=== PATIENT | female | born 1960 | race Caucasian/White ===

== ENCOUNTER 2020-10-03 16:22 | Emergency (ER) | payer OTHER ==
[~2020-10-03] VITALS: Ht 160 cm; Wt 87.8 kg
[2020-10-03] MEDS ORDERED: ONDANSETRON 4MG/2ML VIAL As Ordered ONE (17:10)
[2020-10-03] MEDS ORDERED: ONDANSETRON 4MG/2ML VIAL IV ONE (17:10)
[2020-10-03] MEDS ORDERED: CITA10TA5 PO (17:21)
[2020-10-03] MEDS ORDERED: METO50TA7 PO (17:21)
[2020-10-03] MEDS ORDERED: ECOT81TA5 PO (17:21)
[2020-10-03] MEDS ORDERED: METF10004 PO (17:21)
[2020-10-03] MEDS ORDERED: CLOP75TA2 PO (17:21)
[2020-10-03] MEDS ORDERED: ATOR40TA75 PO (17:21)
[2020-10-03] MEDS ORDERED: CYCL5TAB PO (17:21)
[2020-10-03] MEDS ORDERED: LOSA25TA14 PO (17:21)
[2020-10-03 17:25] LABS: BASO # 0.1 10^3/uL (0.0-0.2); BASO % 1.2 % (0.0-1.0); EOS # 0.1 10^3/uL (0.0-0.5); EOS % 0.5 % (0.0-3.0); HEMATOCRIT 47.4 % (36.0-47.0); LYMPH # 1.2 10^3/uL (1.5-5.0); LYMPH % 10.7 % (24.0-44.0); MEAN CORPUSCULAR HEMOGLOBIN 32.3 pg (27.0-33.0); MEAN CORPUSCULAR HGB CONC 33.8 g/dl (32.0-36.5); MEAN CORPUSCULAR VOLUME 95.8 fl (80.0-96.0); MONO # 0.2 10^3/uL (0.0-0.8); MONO % 1.8 % (2.0-8.0); NEUTROPHILS # 9.5 10^3/uL (1.5-8.5); NEUTROPHILS % 85.4 % (36.0-66.0); PLATELET COUNT, AUTOMATED 302 10^3/uL (150-450); RED BLOOD COUNT 4.95 10^6/uL (4.00-5.40); WHITE BLOOD COUNT 11.1 10^3/uL (4.0-10.0)
[2020-10-03 17:31] LABS: ALBUMIN 4.4 GM/DL (3.2-5.2); ALT/SGPT 46 U/L (12-78); BILIRUBIN,DIRECT 0.1 MG/DL (0.0-0.2); BILIRUBIN,TOTAL 0.4 MG/DL (0.2-1.0); LIPASE 121 U/L (73-393); TOTAL PROTEIN 7.8 GM/DL (6.4-8.2)
[2020-10-03] MEDS ORDERED: HALOPERIDOL 5MG/ML VIAL (J1630 PER 1) IV ONE (17:35)
--- NOTE | 2020-10-03 17:46 | REP ---
INDICATION: nausea. COMPARISON: None. TECHNIQUE: SINGLE PORTABLE AP VIEW OF THE CHEST WAS PERFORMED. FINDINGS: THERE IS NO ACUTE INFILTRATE OR PULMONARY EDEMA. LUNGS ARE CLEAR. HEART IS NOT SIGNIFICANTLY ENLARGED. MEDIASTINAL SILHOUETTE IS UNREMARKABLE. There is calcification of the thoracic aorta. THE VISUALIZED OSSEOUS STRUCTURES ARE INTACT. IMPRESSION: NO ACUTE PULMONARY DISEASE. <Electronically signed by Jerome Carpenter > 10/03/20 [id number]
[2020-10-03 18:21] LABS: CPK CREATINE PHOSPHOKINASE 172 U/L (26-192); MB/CK RELATIVE INDEX 2.91 (< OR =4); TROPONIN I < 0.02 NG/ML (< 0.10)
[2020-10-03 20:00] VITALS: BP 174/72
[2020-10-03] MEDS ORDERED: ONDA4TAB6 PO (20:09)
--- NOTE | 2020-10-04 02:04 | ECGEPIP ---
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
== END 2020-10-03 20:31 | disposition home or self-care (01) ==
LOC: M ED 16:22
DX: K52.9 Noninfective gastroenteritis and colitis, unspecified (principal); E11.9 Type 2 diabetes mellitus without complications; I11.9 Hypertensive heart disease without heart failure; E78.2 Mixed hyperlipidemia; F17.200 Nicotine dependence, unspecified, uncomplicated
CPT/HCPCS: 71045; 80047; 80076; 82550; 82553; 83690; 85025; 93005; 93041; 96374; 96375; 99284; J1630; J2405

== ENCOUNTER 2021-05-16 12:09 | Inpatient (IN) | payer OTHER ==
[~2021-05-16] VITALS: Ht 157.5 cm; Wt 88.6 kg
[~2021-05-16 12:09] MED LIST: ATOR40TA75 PO; CITA10TA5 PO; CLOP75TA2 PO; CYCL5TAB PO; ECOT81TA5 PO; LOSA25TA14 PO; METF10004 PO; METO50TA7 PO; ONDA4TAB6 PO
[2021-05-16 13:06] LABS: BASO # 0.1 10^3/uL (0.0-0.2); BASO % 1.5 % (0.0-1.0); EOS # 0.2 10^3/uL (0.0-0.5); EOS % 2.4 % (0.0-3.0); HEMATOCRIT 44.8 % (36.0-47.0); HEMOGLOBIN 15.3 g/dl (12.0-15.5); LYMPH # 2.1 10^3/uL (1.5-5.0); LYMPH % 23.2 % (24.0-44.0); MEAN CORPUSCULAR HEMOGLOBIN 32.6 pg (27.0-33.0); MEAN CORPUSCULAR HGB CONC 34.2 g/dl (32.0-36.5); MEAN CORPUSCULAR VOLUME 95.5 fl (80.0-96.0); MONO # 0.7 10^3/uL (0.0-0.8); MONO % 7.7 % (2.0-8.0); NEUTROPHILS # 5.8 10^3/uL (1.5-8.5); PLATELET COUNT, AUTOMATED 255 10^3/uL (150-450); RED BLOOD COUNT 4.69 10^6/uL (4.00-5.40); WHITE BLOOD COUNT 8.9 10^3/uL (4.0-10.0)
--- NOTE | 2021-05-16 13:11 | REP ---
INDICATION: CVA - Nursing interventions must not delay CT. COMPARISON: None. TECHNIQUE: CT brain performed in the axial plane. Coronal reconstruction images are performed. FINDINGS: Mild atrophy. There is no midline shift or mass effect. Patchy lucencies are seen in the periventricular white matter bilaterally, right greater than left. These are nonspecific and may represent small vessel ischemic change, of indeterminate age. There is no acute intracranial hemorrhage or extra-axial fluid collection. There are vascular calcifications in the carotid siphons. Visualized paranasal sinuses and mastoid air cells appear clear. IMPRESSION: There is no midline shift or mass effect. Patchy lucencies are seen in the periventricular white matter bilaterally, right greater than left. These are nonspecific and may represent small vessel ischemic change, of indeterminate age. There is no acute intracranial hemorrhage or extra-axial fluid collection. <Electronically signed by Jerome Carpenter > 05/16/21 [id number]
--- NOTE | 2021-05-16 13:14 | REP ---
INDICATION: CVA. COMPARISON: 10/03/2020 TECHNIQUE: AP portable semi erect FINDINGS: The lungs are well inflated. There is no pleural effusion, lateral pleural thickening or apical scarring. No dense consolidation, atelectasis or mass. There are few cuffed bronchi in the perihilar regions that might reflect some reactive airway disease or bronchitis. No cardiomegaly, vascular redistribution or pulmonary edema. Calcified aortic arch without aneurysm. Airway intact. [place] symmetric. Some prominence of the pulmonary arteries noted that might reflect some pulmonary artery hypertension. Visualized bones intact. IMPRESSION: 1. Some perihilar peribronchial thickening that may reflect reactive airway disease or bronchitis but no dense consolidation, pleural effusion, cardiomegaly or edema. <Electronically signed by Wes Porras > 05/16/21 0021
[2021-05-16 13:15] LABS: INR 0.84
[2021-05-16] MEDS ORDERED: ASPIRIN 81 MG CHEW TABLET PO ONE (13:25)
[2021-05-16 13:43] LABS: CK-MB VALUE MASS 2.7 NG/ML (<3.6); CPK CREATINE PHOSPHOKINASE 237 U/L (26-192); MB/CK RELATIVE INDEX 1.14 (< OR =4); TROPONIN I < 0.02 NG/ML (< 0.10)
--- NOTE | 2021-05-16 14:53 | REP ---
INDICATION: fall injury. COMPARISON: None TECHNIQUE: Four views FINDINGS: There is no acute fracture, dislocation, subluxation, or joint effusion. IMPRESSION: No acute osseous abnormality <Electronically signed by Vincent Hunt > 05/16/21 [id number]
--- NOTE | 2021-05-16 14:55 | REP ---
INDICATION: fall injury COMPARISON: None TECHNIQUE: Four views each knee absent the sunrise views FINDINGS: The compartments are symmetric and well maintained bilaterally. There is no acute fracture or destructive osseous lesion bilaterally. Absent the sunrise view a subtle patellar fracture could be obscured. IMPRESSION: Negative limited exam bilateral as described above. A patellar fracture cannot be ruled out although none is seen on this limited exam. <Electronically signed by Vincent Hunt > 05/16/21 [id number]
[2021-05-16 15:15] LABS: RSV AMPLIFICATION NEGATIVE (NEGATIVE)
[2021-05-16] MEDS ORDERED: ALBU8.5H INH (15:59)
[2021-05-16] MEDS ORDERED: HOME MED LIST COMPLETE! XX SCH (16:00)
[2021-05-16 16:26] LABS: ALBUMIN 3.8 GM/DL (3.2-5.2); ALT/SGPT 52 U/L (12-78); BILIRUBIN,TOTAL 0.4 MG/DL (0.2-1.0); BLOOD UREA NITROGEN 15 MG/DL (7-18); CALCIUM LEVEL 9.4 MG/DL (8.5-10.1); CARBON DIOXIDE LEVEL 23 MEQ/L (21-32); CHLORIDE LEVEL 102 MEQ/L (98-107); CHOLESTEROL LEVEL 343 MG/DL (<200); CHOLESTEROL RISK RATIO 7.795 (<5); CREATININE FOR GFR 0.85 MG/DL (0.55-1.30); GLOMERULAR FILTRATION RATE > 60.0 (>51); GLUCOSE, FASTING 252 MG/DL (70-100); HDL CHOLESTEROL 44 MG/DL (>40); LDL CHOLESTEROL 219 MG/DL (<100); NON-HDL-C 299 MG/DL; POTASSIUM SERUM 4.3 MEQ/L (3.5-5.1); SODIUM LEVEL 135 MEQ/L (136-145); TOTAL PROTEIN 7.5 GM/DL (6.4-8.2); TRIGLYCERIDES LEVEL 398 MG/DL (<150)
[2021-05-16] MEDS ORDERED: NICOTINE 21MG/24HR 1 EA TRANSDERMAL TD ONE (16:35)
[2021-05-16] MEDS ORDERED: CYCLOBENZAPRINE 5MG TABLET PO PRN (16:55)
[2021-05-16] MEDS ORDERED: ALBUTEROL 90 MCG/ACT 8GM HFA INHALER INH PRN (16:55)
[2021-05-16] MEDS ORDERED: GLUCOSE 4GM CHEW TABLET PO PRN (17:05)
[2021-05-16] MEDS ORDERED: DEXTROSE 50% 50 ML SYRINGE IV PRN (17:05)
[2021-05-16] MEDS ORDERED: GLUCAGON INJ 1MG VIAL SC PRN (17:05)
--- NOTE | 2021-05-16 17:07 | HPEPDOC ---
[facility] Medical History & Physical Date of Admission May 16, 2021 Date of Service: May 16, 2021 Attending Physician: Constance Lucas MD History and Physical CHIEF COMPLAINT: Left-sided weakness HISTORY OF PRESENT ILLNESS: The patient is a 60-year-old female with past medical history of coronary artery disease status post stenting, diabetes mellitus, depression, hypertension, COPD, tobacco use who presented to [facility] emergency room with the chief complaint of left-sided weakness beginning 05/15/2020 1 in the AM. According to the patient her symptoms began at 6:30 in the morning on 05/15/21 with her left leg dragging on the ground. She stated that her symptoms began suddenly and she had to physically lift her leg to get it to move. Throughout the day she noticed left upper extremity weakness along with left hand numbness and tingling. She denied slurred speech, facial droop, difficulty swallowing, right-sided weakness, loss of bowel or bladder, chest pain, shortness of breath, nausea, vo miting, diarrhea, recent illnesses. Overnight she had a fall where she landed on both knees and her hand. Today the symptoms persisted and she decided to call 911. In the emergency room her vital signs were stable. CT of the head showed nonspecific findings but no intracranial hemorrhage. Chest x-ray and bilateral knee x-ray, right elbow x-ray negative. On exam the patient had 4/5 strength in the left lower and left upper extremity. Sensation was intact to dull and sharp in all extremities. Cranial nerves II-12 are intact. Labs were unremarkable. Upon further questioning, The patient is supposed to be on Plavix and aspirin but admits to not taking any of her medications since early spring. Discussed the case with neurology. MRI and MRA of the brain and neck were ordered. The patient was admitted for left-sided weakness rule out CVA. REVIEW OF SYSTEMS: CONSTITUTIONAL: Denies lack of energy, unexplained weight gain or weight loss, loss of appetite, fever, night sweats EYES: Denies eye drainage, eye pain, visual changes, dry/irritated eye EARS, NOSE, MOUTH, THROAT: Denies difficulty hearing, ringing in ears, mouth sores, loose teeth, sore throat, facial numbness or pain NECK: Denies swollen glands CARDIOVASCULAR: Denies irregular heartbeat, racing heart, chest pains, swelling of feet or legs, pain in legs with walking RESPIRATORY: Denies shortness of breath, night sweats, wheezing, sputum production, oxygen at home, coughing up blood, cough lasting > 1 month GASTROINTESTINAL: Denies abdominal pain, constipation, bloody stool, diarrhea, heartburn, nausea, vomiting GENITOURINARY: Denies painful urination, bloody urine, frequent urination, urgency, leaking urine, impotence MUSCULOSKELETAL: Denies joint pain, muscle pain, leg swelling INTEGUMENTARY: Denies rash, itching, new skin lesion, change in existing skin lesion, hair loss or increase, breast changes. NEUROLOGICAL: Denies headaches, dizziness PSYCHIATRIC: Denies depression, anxiety, recurrent bad thoughts, mood swings, hallucinations PAST MEDICAL HISTORY: coronary artery disease status post stenting, diabetes mellitus, depression, hypertension, COPD, tobacco use PAST SURGICAL HISTORY: Cardiac stent placement cholecystectomy colonoscopy FAMILY HISTORY: Motherdiabetes mellitus. at unknown age SOCIAL HISTORY: One pack per day for 46 years. Drinks alcohol intermittently. Admits to smoking marijuana. Lives with her daughter. Does not use a cane or walker. Was previously independent. Full code. ALLERGIES: Please see below. HOME MEDICATIONS: Please see below. PHYSICAL EXAMINATION: CONSTITUTIONAL: No acute distress, resting comfortably, AAO x 3 EYES: PERRLA, EOM intact HENT, MOUTH: Normocephalic, atraumatic, moist mucous membranes NECK: SUPPLE, no JVD, no lymphadenopathy, no carotid bruit CV: Regular rate and rhythm, S1S2 normal, no murmurs/rubs/gallops RESPIRATORY: Clear to auscultation bilaterally, no rales/rhonchi/wheezes GI: BS positive in 4 quadrants, soft, nontender, nondistended, no rebound or guarding, no organomegaly : Deferred MUSCULOSKELETAL: Normal ROM. No cyanosis, clubbing, swelling, joint deformity, extremity edema INTEGUMENTARY: Intact, no rashes, no lesions, no erythema NEUROLOGIC: 4/5 strength in the left lower and left upper extremity. Sensation was intact to dull and sharp in all extremities. Cranial nerves II-12 are intact. Reflexes present in upper and lower extremity PSYCHIATRIC: Mood and affect are normal LABORATORY DATA: Please see below IMAGING: CT head: There is no midline shift or mass effect. Patchy lucencies are seen in the periventricular white matter bilaterally, right greater than left. These are nonspecific and may represent small vessel ischemic change, of indeterminate age. There is no acute intracranial hemorrhage or extra-axial fluid collection. CXR: 1. Some perihilar peribronchial thickening that may reflect reactive airway disease or bronchitis but no dense consolidation, pleural effusion, cardiomegaly or edema. B/l knee XR: Negative limited exam bilateral as described above. A patellar fracture cannot be ruled out although none is seen on this limited exam. R elbow XR: No acute osseous abnormality ASSESSMENT: 60-year-old female with past medical history of coronary artery disease status post stenting, diabetes mellitus, depression, hypertension, COPD, tobacco use admitted for left-sided weakness rule out CVA. PLAN: Left-sided weakness rule out CVA -Multiple risk factors: Smoker, coronary artery disease, noncompliance with antiplatelet medication, hyperlipidemia -CT head negative -Neurological findings seen above -Follow-up neurological checks, telemetry, echocardiogram, PT/OT -No speech or swallowing deficits seen on exam. If some she developed order swallowing evaluation -Started on high-dose atorvastatin, continue aspirin and Plavix -Discussed the case with neurology on-call. Will see tomorrow on consult. -Follow-up MRI of the brain, MRA of the head and neck Fall secondary to left-sided weakness -X-rays above negative -Assistance with activity out of bed, fall precautions -PT/OT Hypertension -Stable with systolic 130's -Holding home metoprolol and losartan for now Hyperlipidemia -Atorvastatin Tobacco use -Nicotine patch COPD -Currently on room air, not in exacerbation -Albuterol when necessary Leg cramping bilaterally -On statin medication -Follow up CPK and electrolytes Depression -No homicidal or suicidal ideation -Continue home citalopram DVT prophylaxis -Lovenox DISPOSITION: Admitted as acute inpatient. Neurology consulted and will see in the a.m. PT/OT. Vital Signs Vital Signs Date Time Temp Pulse Resp B/P (MAP) Pulse Ox O2 Delivery O2 Flow Rate FiO2 05/16/21 12:12 97.0 104 18 136/92 (107) 93 Room Air Laboratory Data Labs 24H Laboratory Tests 2 05/16/21 12:49: Immature Granulocyte % (Auto) 0.2, Neutrophils (%) (Auto) 65.0, Lymphocytes (%) (Auto) 23.2L, Monocytes (%) (Auto) 7.7, Eosinophils (%) (Auto) 2.4, Basophils (%) (Auto) 1.5H, Neutrophils # (Auto) 5.8, Lymphocytes # (Auto) 2.1, Monocytes # (Auto) 0.7, Eosinophils # (Auto) 0.2, Basophils # (Auto) 0.1, Nucleated Red Blood Cells % (auto) 0.0, Prothrombin Time 12.0, Prothromb Time International Ratio 0.84, Activated Partial Thromboplast Time 27.0, Anion Gap 10, Glomerular Filtration Rate > 60.0, Calcium Level 9.4, Total Bilirubin 0.4, Aspartate Amino Transf (AST/SGOT) 30, Alanine Aminotransferase (ALT/SGPT) 52, Alkaline Phosphatase 94, Total Creatine Kinase 237H, Creatine Kinase MB 2.7, Creatine Kinase MB Relative Index 1.14, Troponin I < 0.02, Total Protein 7.5, Albumin 3.8, Albumin/Globulin Ratio 1.0L, Triglycerides Level 398H, Total Cholesterol 343H, LDL Cholesterol 219H, Non-HDL Cholesterol (LDL + VLDL) 299, Total HDL Cholesterol 44, Cholesterol/HDL Ratio 7.795H, Thyroid Stimulating Hormone (TSH) 1.650 05/16/21 12:50: POC Glucose (Misc Panel) 262H, POC Sodium (Misc Panel) 135L, POC Potassium (Misc Panel) 4.4, POC Chloride (Misc Panel) 101, POC Total CO2 (Misc Panel) 25.0, POC Blood Urea Nitrogen (Misc Panel 20, POC Ionized Calcium (Misc Panel) 4.7, POC Creatinine (Misc Panel) 0.5L, POC Hematocrit (Misc Panel) 47.0 05/16/21 13:04: Coronavirus (COVID-19)(PCR) NEGATIVE, Influenza Type A (RT-PCR) NEGATIVE, Influenza Type B (RT-PCR) NEGATIVE, Respiratory Syncytial Virus (PCR) NEGATIVE CBC/BMP Laboratory Tests 05/16/21 12:49 Home Medications Scheduled Atorvastatin Calcium (Atorvastatin Calcium) 40 Mg Tablet, 40 MG PO DAILY Citalopram Hydrobromide (Citalopram HBr) 10 Mg Tablet, 10 MG PO DAILY Clopidogrel Bisulfate (Clopidogrel) 75 Mg Tablet, 75 MG PO DAILY Losartan Potassium (Losartan Potassium) 25 Mg Tablet, 25 MG PO DAILY Metformin HCl (Metformin HCl) 1,000 Mg Tablet, 1,000 MG PO DAILY Metoprolol Tartrate (Metoprolol Tartrate) 50 Mg Tablet, 50 MG PO BID Scheduled PRN Albuterol Sulfate (Albuterol Sulfate Hfa) 8.5 Gm Hfa.aer.ad, 1 PUFF INH Q4H PRN for SOB/WHEEZING Cyclobenzaprine HCl (Cyclobenzaprine HCl) 5 Mg Tablet, 5 MG PO QHS PRN for MUSCLE SPASMS Allergies Coded Allergies: No Known Allergies (Unverified , 10/03/20) A-FIB/CHADSVASC A-FIB History Current/History of A-Fib/PAF?: No Current PO Anticoag Therapy: No Age/Risk Factor Scoring CHADSVASC: CHADSVASC Response (Comments) Value Age Risk Factor Age < 65 years old 0 Gender Risk Factor Female 1 Hx of CHF No 0 Hx of HTN Yes 1 Hx of Stroke/TIA/or VTE Yes 2 Hx of Diabetes Yes 1 Hx of Vascular Disease Yes 1 Total 6 Treatment Treatment ordered: Other Other anticoagulant ordered: Constance Israel MD May 16, 2021 17:07
[2021-05-16 18:06] LABS: MAGNESIUM LEVEL 1.8 MG/DL (1.8-2.4); PHOSPHORUS LEVEL 3.6 MG/DL (2.5-4.9)
[2021-05-16] MEDS: HumaLOG INSULIN (NovoLOG) PER UNIT SC SCH ×2 (18:52→21:44)
[2021-05-16] MEDS ORDERED: LORazepam 2 MG/ML VIAL IV STA (19:17)
--- NOTE | 2021-05-16 20:52 | ECGEPIP ---
[facility] - ED Test Date: 2021-05-16 Pat Name: ADRIA KING Department: Room: - Gender: Female Elderly Sitter: JUAN ANTONIO : 1960 Requested By: KAREN COUGHLIN Order Number: [id number] Reading MD: Jessica Garcia Measurements Intervals [place] Rate: 77 P: 26 WV: 134 QRS: 66 QRSD: 82 T: 42 QT: 386 QTc: 436 Interpretive Statements Normal sinus rhythm Low voltage QRS prwp NSTTW abnormalities increased rate 10/03/20 Electronically Signed on 05-16-2021 20:51:57 EDT by Jessica Garcia
[2021-05-16] MEDS ORDERED: METOPROLOL TART 50 MG TAB PO SCH (21:00)
--- NOTE | 2021-05-16 22:18 | REPVR ---
PROCEDURE INFORMATION: Exam: MR Head Without Contrast Exam date and time: 05/16/2021 7:57 PM Age: 60 years old Clinical indication: Weakness, extremity; Left; Additional info: Left side weakness, R/O CVA TECHNIQUE: Imaging protocol: MR of the head without contrast. COMPARISON: CT Head without contrast 05/16/2021 12:42 PM FINDINGS: Limitations: Motion artifact limits this study. Brain: Foci of restricted diffusion are identified in the region of the posterior limb of the right internal capsule, consistent with acute lacunar infarcts. These findings are hyperintense on FLAIR. A few tiny foci of increased diffusion signal intensity are noted within the left basal ganglia, with heterogeneous signal intensity on the ADC trace sequence. Acute or subacute infarcts are considered. Due to the distribution of findings, embolic disease is suggested. Multiple foci of FLAIR hyperintensity are identified within the cerebral white matter bilaterally, as well as the michael. There is no mass effect or restricted diffusion associated with these foci. This likely represents chronic small vessel ischemic disease. An area of FLAIR hyperintense edema or gliosis identified within the right frontal white matter measuring 2.5 x 2.5 cm. Chronic small vessel ischemic disease is considered. Additional differential considerations include demyelination and post-traumatic change as well as additional infectious, inflammatory and autoimmune etiologies. A few additional foci of FLAIR hyperintensity are seen within the left basal ganglia, likely representing chronic ischemic change. No magnetic susceptibility intracerebral blood products/hemosiderin visualized. Cerebral ventricles: There is mild prominence of the ventricles and sulci, compatible with atrophy. Pituitary gland and sella: Empty sella. Bones/joints: Unremarkable, as visualized. Paranasal sinuses: Normal as visualized. No acute sinusitis. Mastoid air cells: Minimal mucosal thickening/effusions within right mastoid air cells. Orbital cavity: Bilateral proptosis. Soft tissues: Unremarkable, as visualized. IMPRESSION: 1. Foci of restricted diffusion are identified in the region of the posterior limb of the right internal capsule, consistent with acute lacunar infarcts. 2. A few tiny foci of increased diffusion signal intensity are noted within the left basal ganglia. Acute or subacute infarcts are considered. Due to the distribution of findings, embolic disease is suggested. 3. Moderate white matter disease, likely representing chronic small vessel ischemic disease. 4. An area of edema or gliosis identified within the right frontal white matter. Chronic small vessel ischemic disease is considered. Additional differential considerations listed above. A follow-up MRI with contrast is recommended to exclude an underlying enhancing lesion. 5. Mild atrophy. 6. Empty sella. 7. Additional findings described above. Electronically signed by: Quinn Whittaker On 05/16/2021 22:18:12 PM
--- NOTE | 2021-05-16 22:30 | REPVR ---
PROCEDURE INFORMATION: Exam: MRA Head Without Contrast; Arteriography Exam date and time: 05/16/2021 7:57 PM Age: 60 years old Clinical indication: Weakness; Additional info: Left side weakness, R/O CVA TECHNIQUE: Imaging protocol: Magnetic resonance angiography head without contrast. Exam focused on the arteries. COMPARISON: CT Head without contrast 05/16/2021 12:42 PM FINDINGS: ANTERIOR CIRCULATION: Right internal carotid artery: Intracranial segment is patent with no significant stenosis. No aneurysm. Right middle cerebral artery: No occlusion or significant stenosis. No aneurysm. 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 The A2 and A3 segments of the right anterior cerebral artery is dominant. No occlusion. Left internal carotid artery: Intracranial segment is patent with no significant stenosis. No aneurysm. Left middle cerebral artery: No occlusion or significant stenosis. No aneurysm. 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 No occlusion. No aneurysm. POSTERIOR CIRCULATION: Right vertebral artery: Artifact limits evaluation of the distal V3/proximal V4 segments of the right vertebral artery, without occlusion. No significant stenosis or occlusion of the remaining V4 segment. Left vertebral artery: Artifact limits evaluation of the distal V3/proximal V4 segments of the left vertebral artery, without occlusion. No significant stenosis or occlusion of the remaining V4 segment. Basilar artery: No occlusion or significant stenosis. No aneurysm. Right posterior cerebral artery: Persistence of the origin of the right posterior cerebral artery, without significant stenosis or occlusion. No aneurysm. Left posterior cerebral artery: No occlusion or significant stenosis. No aneurysm. IMPRESSION: 1. No large vessel arterial occlusion on this MRA head. 2. Artifact limits evaluation of the distal V3/proximal V4 segments of the bilateral vertebral arteries, without occlusion. The remaining V4 segments are patent. 3. Additional findings described above. Electronically signed by: Quinn Whittaker On 05/16/2021 22:29:52 PM
--- NOTE | 2021-05-16 22:40 | REPVR ---
PROCEDURE INFORMATION: Exam: MRA Neck Without Contrast Exam date and time: 05/16/2021 8:18 PM Age: 60 years old Clinical indication: Weakness; Additional info: Left side weakness, R/O CVA TECHNIQUE: Imaging protocol: Magnetic resonance angiography of the neck without contrast. COMPARISON: MRA BRAIN W/O CONTRAST 05/16/2021 7:29 PM FINDINGS: Right common carotid artery: No significant stenosis or occlusion of the distal right common carotid artery. Artifact limits evaluation of the remaining right common carotid artery, without occlusion. Right internal carotid artery: No stenosis of the proximal right internal carotid artery using NASCET criteria. Artifact limits evaluation of the remaining extracranial right internal carotid artery, without occlusion. Right external carotid artery: No significant stenosis. No occlusion. Right vertebral artery: Suboptimal evaluation of the distal V3 segment of the right vertebral artery. No occlusion when correlated with the MRA head from the same day. Artifact limits evaluation of the V2 segment, without occlusion. Suboptimal evaluation of the V1 segment of the right vertebral artery. Flow-limiting pathology cannot be excluded. Left common carotid artery: No significant stenosis or occlusion of the distal left common carotid artery. The origin of the left common carotid artery is out of the field of view of this study. The remaining left common carotid artery is limited by artifact, without occlusion. Left internal carotid artery: No stenosis of the proximal left internal carotid artery using NASCET criteria. Artifact limits evaluation of the remaining extracranial left internal carotid artery, without occlusion. Left external carotid artery: No significant stenosis. No occlusion. Left vertebral artery: Artifact significant limits evaluation of the extracranial left vertebral artery, without definitive occlusion. IMPRESSION: 1. No stenosis of the proximal internal carotid arteries bilaterally using NASCET criteria. 2. Suboptimal evaluation of the V1 segment of the right vertebral artery. Flow-limiting pathology cannot be excluded. 3. Additional findings described above. 4. Due to the limitations of this study, correlation with CTA or postcontrast MRA is recommended, as clinically indicated. REFERENCES: NASCET CRITERIA. The degree of internal carotid artery stenosis is based on NASCET criteria. Normal is no stenosis. Mild is less than 50% stenosis. Moderate is 50-69% stenosis. Severe is 70% to 99% stenosis. Total occlusion is no detectable patent lumen. Electronically signed by: Quinn Whittaker On 05/16/2021 22:40:01 PM
[2021-05-17 05:37] LABS: HEMATOCRIT 45.1 % (36.0-47.0); HEMOGLOBIN 15.2 g/dl (12.0-15.5); MEAN CORPUSCULAR HGB CONC 33.7 g/dl (32.0-36.5); PLATELET COUNT, AUTOMATED 225 10^3/uL (150-450); WHITE BLOOD COUNT 7.6 10^3/uL (4.0-10.0)
[2021-05-17 06:20] LABS: ALBUMIN 3.3 GM/DL (3.2-5.2); ALT/SGPT 47 U/L (12-78); BILIRUBIN,TOTAL 0.3 MG/DL (0.2-1.0); BLOOD UREA NITROGEN 17 MG/DL (7-18); CALCIUM LEVEL 9.4 MG/DL (8.5-10.1); CARBON DIOXIDE LEVEL 26 MEQ/L (21-32); CHLORIDE LEVEL 106 MEQ/L (98-107); CREATININE FOR GFR 0.75 MG/DL (0.55-1.30); GLOMERULAR FILTRATION RATE > 60.0 (>51); GLUCOSE, FASTING 263 MG/DL (70-100); SODIUM LEVEL 139 MEQ/L (136-145); TOTAL PROTEIN 6.8 GM/DL (6.4-8.2)
[2021-05-17 07:49] LABS: NT-PRO BNP 48 PG/ML (<125)
[2021-05-17] MEDS ORDERED: metFORMIN (GLUCOPHAGE) 1000 MG TABLET PO SCH (09:00)
[2021-05-17] MEDS ORDERED: LOSARTAN 25 MG TAB PO SCH (09:00)
[2021-05-17] MEDS: ASPIRIN 81MG ENTERIC TABLET PO SCH (09:05)
[2021-05-17] MEDS: HumaLOG INSULIN (NovoLOG) PER UNIT SC SCH ×4 (09:05→21:00)
[2021-05-17] MEDS: CitaloPRAM (CeleXA) 10 MG TABLET PO SCH (09:05)
[2021-05-17] MEDS: CLOPIDOGREL 75 MG TAB PO SCH (09:05)
[2021-05-17] MEDS: ATORVASTATIN 20 MG TAB PO SCH (09:06)
--- NOTE | 2021-05-17 11:12 | IPNPDOC ---
Date Seen The patient was seen on 05/17/21. Progress Note SUBJECTIVE: No change in neurological status overnight. Denies chest pain, shortness of breath, fevers, chills, nausea, vomiting, lightheadedness or dizziness. OBJECTIVE: PHYSICAL EXAMINATION: CONSTITUTIONAL: No acute distress, resting comfortably, AAO x 3 EYES: PERRLA, EOM intact HENT, MOUTH: Normocephalic, atraumatic, moist mucous membranes NECK: SUPPLE, no JVD, no lymphadenopathy, no carotid bruit CV: Regular rate and rhythm, S1S2 normal, no murmurs/rubs/gallops RESPIRATORY: Clear to auscultation bilaterally, no rales/rhonchi/wheezes GI: BS positive in 4 quadrants, soft, nontender, nondistended, no rebound or guarding, no organomegaly : Deferred MUSCULOSKELETAL: Normal ROM. No cyanosis, clubbing, swelling, joint deformity, extremity edema INTEGUMENTARY: Intact, no rashes, no lesions, no erythema NEUROLOGIC: 4/5 strength in the left lower and left upper extremity. Sensation was intact to dull and sharp in all extremities. Cranial nerves II-12 are intact. Reflexes present in upper and lower extremity PSYCHIATRIC: Mood and affect are normal LABORATORY DATA: Please see below IMAGING: MRA neck (was not able to do with contrast due to staffing): 1. No stenosis of the proximal internal carotid arteries bilaterally using NASCET criteria. 2. Suboptimal evaluation of the V1 segment of the right vertebral artery. Flow-limiting pathology cannot be excluded. 3. Additional findings described above. 4. Due to the limitations of this study, correlation with CTA or postcontrast MRA is recommended, as clinically indicated. MRA brain: 1. No large vessel arterial occlusion on this MRA head. 2. Artifact limits evaluation of the distal V3/proximal V4 segments of the bilateral vertebral arteries, without occlusion. The remaining V4 segments are patent. 3. Additional findings described above. MRI brain: 1. Foci of restricted diffusion are identified in the region of the posterior limb of the right internal capsule, consistent with acute lacunar infarcts. 2. A few tiny foci of increased diffusion signal intensity are noted within the left basal ganglia. Acute or subacute infarcts are considered. Due to the distribution of findings, embolic disease is suggested. 3. Moderate white matter disease, likely representing chronic small vessel ischemic disease. 4. An area of edema or gliosis identified within the right frontal white matter. Chronic small vessel ischemic disease is considered. Additional differential considerations listed above. A follow-up MRI with contrast is recommended to exclude an underlying enhancing lesion. 5. Mild atrophy. CT head: There is no midline shift or mass effect. Patchy lucencies are seen in the periventricular white matter bilaterally, right greater than left. These are nonspecific and may represent small vessel ischemic change, of indeterminate age. There is no acute intracranial hemorrhage or extra-axial fluid collection. CXR: 1. Some perihilar peribronchial thickening that may reflect reactive airway disease or bronchitis but no dense consolidation, pleural effusion, cardiomegaly or edema. B/l knee XR: Negative limited exam bilateral as described above. A patellar fracture cannot be ruled out although none is seen on this limited exam. R elbow XR: No acute osseous abnormality ASSESSMENT: 60-year-old female with past medical history of coronary artery disease status post stenting, diabetes mellitus, depression, hypertension, COPD, tobacco use admitted for left-sided weakness rule out CVA. PLAN: Left-sided weakness likely 2/2 to acute right lacunar infarcts, left basal g [place]- r/o embolic disease -MRI brain above, also cannot r/o acute left basal ganglia acute or subacute infarcts are considered. Due to the distribution of findings, embolic disease is suggested? -Other imaging above -Multiple risk factors: Smoker, coronary artery disease, noncompliance with anti platelet medication, hyperlipidemia -Neurological findings stable overnight, neg neuro checks -Lipid panel shows high TG and cholesterol -Continue to follow up neurological checks, telemetry, PT/OT -Echocardiogram initially done without bubble study, will reorder -No speech or swallowing deficits seen on exam. If some she developed order swallowing evaluation -C/w high-dose atorvastatin, aspirin and Plavix -Discussed the case with neurology on-call. Will see today on consult Fall secondary to left-sided weakness -X-rays above negative -Assistance with activity out of bed, fall precautions -PT/OT Hypertension -Stable with systolic 130's -Holding home metoprolol and losartan for now Hyperlipidemia -High TG and cholesterol -Atorvastatin Tobacco use -Nicotine patch COPD -Currently on room air, not in exacerbation -Albuterol when necessary Leg cramping bilaterally, hx of restless leg syndrome and electrolyte abnormalities -On statin medication but CPK minimally elevated -Replace lytes PRN Depression -No homicidal or suicidal ideation -Continue home citalopram DVT prophylaxis -Lovenox DISPOSITION: Admitted as acute inpatient. Neurology consulted will see today. PT/OT. VS, I&O, 24H, Tan Vital Signs/I&O Vital Signs Date Time Temp Pulse Resp B/P (MAP) Pulse Ox O2 Delivery O2 Flow Rate FiO2 05/17/21 08:15 97.7 82 22 149/66 (93) 95 Nasal Cannula 2.0 Laboratory Data 24H LABS Laboratory Tests 2 05/16/21 12:49: Immature Granulocyte % (Auto) 0.2, Neutrophils (%) (Auto) 65.0, Lymphocytes (%) (Auto) 23.2L, Monocytes (%) (Auto) 7.7, Eosinophils (%) (Auto) 2.4, Basophils (%) (Auto) 1.5H, Neutrophils # (Auto) 5.8, Lymphocytes # (Auto) 2.1, Monocytes # (Auto) 0.7, Eosinophils # (Auto) 0.2, Basophils # (Auto) 0.1, Nucleated Red Blood Cells % (auto) 0.0, Prothrombin Time 12.0, Prothromb Time International Ratio 0.84, Activated Partial Thromboplast Time 27.0, Anion Gap 10, Glomerular Filtration Rate > 60.0, Calcium Level 9.4, Total Bilirubin 0.4, Aspartate Amino Transf (AST/SGOT) 30, Alanine Aminotransferase (ALT/SGPT) 52, Alkaline Phosphatase 94, Total Creatine Kinase 237H, Creatine Kinase MB 2.7, Creatine Kinase MB Relative Index 1.14, Troponin I < 0.02, Total Protein 7.5, Albumin 3.8, Albumin/Globulin Ratio 1.0L, Triglycerides Level 398H, Total Cholesterol 343H, LDL Cholesterol 219H, Non-HDL Cholesterol (LDL + VLDL) 299, Total HDL Cholesterol 44, Cholesterol/HDL Ratio 7.795H, Thyroid Stimulating Hormone (TSH) 1.650 05/16/21 12:50: POC Glucose (Misc Panel) 262H, POC Sodium (Misc Panel) 135L, POC Potassium (Misc Panel) 4.4, POC Chloride (Misc Panel) 101, POC Total CO2 (Misc Panel) 25.0, POC Blood Urea Nitrogen (Misc Panel 20, POC Ionized Calcium (Misc Panel) 4.7, POC Creatinine (Misc Panel) 0.5L, POC Hematocrit (Misc Panel) 47.0 05/16/21 13:04: Coronavirus (COVID-19)(PCR) NEGATIVE, Influenza Type A (RT-PCR) NEGATIVE, Influenza Type B (RT-PCR) NEGATIVE, Respiratory Syncytial Virus (PCR) NEGATIVE 05/16/21 17:24: Total Creatine Kinase 214H, Phosphorus Level 3.6, Magnesium Level 1.8 05/16/21 21:41: Bedside Glucose (Misc Panel) 308H 05/17/21 05:23: Nucleated Red Blood Cells % (auto) 0.0, Anion Gap 7L, Glomerular Filtration Rate > 60.0, Calcium Level 9.4, Total Bilirubin 0.3, Aspartate Amino Transf (AST/SGOT) 20, Alanine Aminotransferase (ALT/SGPT) 47, Alkaline Phosphatase 93, XC-Wbq-[id number]-Type Natriuretic Peptide 48, Total Protein 6.8, Albumin 3.3, Albumin/Globulin Ratio 0.9L CBC/BMP Laboratory Tests 05/16/21 12:49 05/17/21 05:23 Constance Lucas MD May 17, 2021 11:12
[2021-05-17] MEDS: ACETAMINOPHEN TAB 650MG DOSE (2X325MG) PO PRN (12:30)
[2021-05-17] MEDS ORDERED: LEVEMIR (INSULIN DETEMIR) 1 UNITS/0.01ML SC SCH (12:45)
[2021-05-17] MEDS ORDERED: PROHANCE 279.3MG/ML 5ML VIAL As Ordered ONE (14:09)
[2021-05-17] MEDS ORDERED: PROHANCE 279.3MG/ML 15ML VIAL As Ordered ONE (14:09)
[2021-05-17] MEDS ORDERED: LEVEMIR (INSULIN DETEMIR) 1 UNITS/0.01ML SC ONE (14:15)
--- NOTE | 2021-05-17 15:13 | REPVR ---
PROCEDURE INFORMATION: Exam: MR Head With Contrast Exam date and time: 05/17/2021 2:25 PM Age: 60 years old Clinical indication: Other: Abnormal mri without, R/O mass, recent CVA TECHNIQUE: Imaging protocol: MR of the head with intravenous contrast. Contrast material: PROHANCE; Contrast volume: 17 ml; Contrast route: INTRAVENOUS (IV); COMPARISON: MRI-Brain without Contrast 05/16/2021 7:29 PM FINDINGS: Brain: Examination reveals no evidence for abnormal contrast enhancement in the focal area of vasogenic edema/gliosis noted in the right frontal white matter on the previous study. No significant mass effect is noted. This excludes the possibility of metastasis or infectious process. A low-grade glioma cannot be entirely excluded and a follow-up MRI in 3-6 months or MRI spectroscopy may be considered for further evaluation. No abnormal contrast enhancement is seen in area of acute infarctions in the posterior limb of the right internal capsule noted on the previous study. No acute hemorrhage or midline shift is seen. No abnormal contrast enhancement is seen. Stable changes of moderate chronic microvascular ischemic disease and multiple foci of chronic ischemia in bilateral cerebral white matter. Few of the white matter lesions are perpendicular to the long axis of the lateral ventricles and multiple sclerosis should also be considered. Cerebral ventricles: The ventricular system is not dilated and is appropriate for the patient's age. Bones/joints: Unremarkable. Paranasal sinuses: Normal as visualized. No acute sinusitis. Mastoid air cells: Normal as visualized. No mastoid effusion. Orbital cavity: Unremarkable. Other vasculature: There are prominent lenticulostriate small vessels bilaterally and vasculitis such as moyamoya disease should also be considered. IMPRESSION: 1. Examination reveals no evidence for abnormal contrast enhancement in the focal area of vasogenic edema/gliosis noted in the right frontal white matter on the previous study. No significant mass effect is noted. This excludes the possibility of metastasis or infectious process. A low-grade glioma cannot be entirely excluded and a follow-up MRI in 3-6 months or MRI spectroscopy may be considered for further evaluation. 2. No abnormal contrast enhancement is seen in area of acute infarctions in the posterior limb of the right internal capsule noted on the previous study. 3. Stable changes of moderate chronic microvascular ischemic disease and multiple foci of chronic ischemia in bilateral cerebral white matter. Few of the white matter lesions are perpendicular to the long axis of the lateral ventricles and multiple sclerosis should also be considered. 4. There are prominent lenticulostriate small vessels bilaterally and vasculitis such as moyamoya disease should also be considered. Electronically signed by: Silvestre Fonseca On 05/17/2021 15:12:53 PM
[2021-05-17] MEDS: IBUPROFEN 600MG TAB PO PRN (15:48)
[2021-05-18 06:16] LABS: HEMATOCRIT 45.8 % (36.0-47.0); HEMOGLOBIN 15.4 g/dl (12.0-15.5); MEAN CORPUSCULAR HEMOGLOBIN 32.6 pg (27.0-33.0); MEAN CORPUSCULAR HGB CONC 33.6 g/dl (32.0-36.5); MEAN CORPUSCULAR VOLUME 96.8 fl (80.0-96.0); PLATELET COUNT, AUTOMATED 228 10^3/uL (150-450); RED BLOOD COUNT 4.73 10^6/uL (4.00-5.40); WHITE BLOOD COUNT 7.2 10^3/uL (4.0-10.0)
[2021-05-18 06:46] LABS: ALBUMIN 3.4 GM/DL (3.2-5.2); ALT/SGPT 45 U/L (12-78); BILIRUBIN,TOTAL 0.6 MG/DL (0.2-1.0); BLOOD UREA NITROGEN 16 MG/DL (7-18); CALCIUM LEVEL 9.4 MG/DL (8.5-10.1); CARBON DIOXIDE LEVEL 27 MEQ/L (21-32); CHLORIDE LEVEL 101 MEQ/L (98-107); CREATININE FOR GFR 0.74 MG/DL (0.55-1.30); GLOMERULAR FILTRATION RATE > 60.0 (>51); GLUCOSE, FASTING 258 MG/DL (70-100); POTASSIUM SERUM 4.2 MEQ/L (3.5-5.1); SODIUM LEVEL 137 MEQ/L (136-145); TOTAL PROTEIN 6.8 GM/DL (6.4-8.2)
--- NOTE | 2021-05-18 07:37 | IPNPDOC ---
Date Seen The patient was seen on 05/18/21. Progress Note SUBJECTIVE: No change in neurological status overnight. MRI brain done, to discuss with neuro. PT/OT to see today. Denies chest pain, shortness of breath, fevers, chills, nausea, vomiting, lightheadedness or dizziness. OBJECTIVE: PHYSICAL EXAMINATION: CONSTITUTIONAL: No acute distress, resting comfortably, AAO x 3 EYES: PERRLA, EOM intact HENT, MOUTH: Normocephalic, atraumatic, moist mucous membranes NECK: SUPPLE, no JVD, no lymphadenopathy, no carotid bruit CV: Regular rate and rhythm, S1S2 normal, no murmurs/rubs/gallops RESPIRATORY: Clear to auscultation bilaterally, no rales/rhonchi/wheezes GI: BS positive in 4 quadrants, soft, nontender, nondistended, no rebound or guarding, no organomegaly : Deferred MUSCULOSKELETAL: Normal ROM. No cyanosis, clubbing, swelling, joint deformity, extremity edema INTEGUMENTARY: Intact, no rashes, no lesions, no erythema NEUROLOGIC: 4/5 strength in the left lower and left upper extremity. Sensation was intact to dull and sharp in all extremities. Cranial nerves II-12 are intact. Reflexes present in upper and lower extremity PSYCHIATRIC: Mood and affect are normal LABORATORY DATA: Please see below IMAGING: MRI brain with contrast: 1. Examination reveals no evidence for abnormal contrast enhancement in the focal area of vasogenic edema/gliosis noted in the right frontal white matter on the previous study. No significant mass effect is noted. This excludes the possibility of metastasis or infectious process. A low-grade glioma cannot be entirely excluded and a follow-up MRI in 3-6 months or MRI spectroscopy may be considered for further evaluation. 2. No abnormal contrast enhancement is seen in area of acute infarctions in the posterior limb of the right internal capsule noted on the previous study. 3. Stable changes of moderate chronic microvascular ischemic disease and multiple foci of chronic ischemia in bilateral cerebral white matter. Few of the white matter lesions are perpendicular to the long axis of the lateral ventricles and multiple sclerosis should also be considered. 4. There are prominent lenticulostriate small vessels bilaterally and vasculitis such as moyamoya disease should also be considered. MRA neck (was not able to do with contrast due to staffing): 1. No stenosis of the proximal internal carotid arteries bilaterally using NASCET criteria. 2. Suboptimal evaluation of the V1 segment of the right vertebral artery. Flow-limiting pathology cannot be excluded. 3. Additional findings described above. 4. Due to the limitations of this study, correlation with CTA or postcontrast MRA is recommended, as clinically indicated. MRA brain: 1. No large vessel arterial occlusion on this MRA head. 2. Artifact limits evaluation of the distal V3/proximal V4 segments of the bilateral vertebral arteries, without occlusion. The remaining V4 segments are patent. 3. Additional findings described above. MRI brain: 1. Foci of restricted diffusion are identified in the region of the posterior limb of the right internal capsule, consistent with acute lacunar infarcts. 2. A few tiny foci of increased diffusion signal intensity are noted within the left basal ganglia. Acute or subacute infarcts are considered. Due to the distribution of findings, embolic disease is suggested. 3. Moderate white matter disease, likely representing chronic small vessel ischemic disease. 4. An area of edema or gliosis identified within the right frontal white matter. Chronic small vessel ischemic disease is considered. Additional differential considerations listed above. A follow-up MRI with contrast is recommended to exclude an underlying enhancing lesion. 5. Mild atrophy. CT head: There is no midline shift or mass effect. Patchy lucencies are seen in the periventricular white matter bilaterally, right greater than left. These are nonspecific and may represent small vessel ischemic change, of indeterminate age. There is no acute intracranial hemorrhage or extra-axial fluid collection. CXR: 1. Some perihilar peribronchial thickening that may reflect reactive airway disease or bronchitis but no dense consolidation, pleural effusion, cardiomegaly or edema. B/l knee XR: Negative limited exam bilateral as described above. A patellar fracture cannot be ruled out although none is seen on this limited exam. R elbow XR: No acute osseous abnormality ASSESSMENT: 60-year-old female with past medical history of coronary artery disease status post stenting, diabetes mellitus, depression, hypertension, COPD, tobacco use admitted for left-sided weakness rule out CVA. PLAN: Left-sided weakness likely 2/2 to acute right lacunar infarcts, left basal ga [place]- r/o embolic disease -MRI above, also cannot r/o acute left basal ganglia acute or subacute infarcts are considered. Due to the distribution of findings, embolic disease is suggested -Other imaging above -Multiple risk factors: Smoker, coronary artery disease, noncompliance with antiplatelet medication, hyperlipidemia -Neurological findings stable overnight, neg neuro checks -Lipid panel shows high TG and cholesterol -Continue to follow up neurological checks, telemetry, PT/OT -Echocardiogram initially done without bubble study -D/w with Dr. Palacios, cardiology. RAFAEL with bubble study to be scheduled for 05/19/21 later in day -No speech or swallowing deficits seen on exam. If some she developed order swallowing evaluation -C/w high-dose atorvastatin, aspirin and Plavix -Discussed the case with neurology on-call, see consult note ? low-grade glioma on MRI brain with contrast -See report above -To discuss with neurology -Will need f/u MRI in 3-6 months or MRI spectroscopy in future Fall secondary to left-sided weakness -X-rays above negative -Assistance with activity out of bed, fall precautions -PT/OT Hypertension -Stable -Holding home metoprolol and losartan for now Hyperlipidemia -High TG and cholesterol -Atorvastatin Tobacco use -Nicotine patch COPD -Currently on room air, not in exacerbation -Albuterol when necessary Leg cramping bilaterally, hx of restless leg syndrome and electrolyte abnormalities -On statin medication but CPK minimally elevated -Replace lytes PRN Depression -No homicidal or suicidal ideation -Continue home citalopram DVT prophylaxis -Lovenox DISPOSITION: Admitted as acute inpatient. Neurology has seen. PT/OT. VS, I&O, 24H, Tan Vital Signs/I&O Vital Signs Date Time Temp Pulse Resp B/P (MAP) Pulse Ox O2 Delivery O2 Flow Rate FiO2 05/18/21 06:46 74 95 05/18/21 06:00 114/59 (77) 05/17/21 19:00 Nasal Cannula 2.0 05/17/21 15:45 97.9 22 Laboratory Data 24H LABS Laboratory Tests 2 05/17/21 11:28: Bedside Glucose (Misc Panel) 313H 05/17/21 15:39: Bedside Glucose (Misc Panel) 214H 05/17/21 18:56: Bedside Glucose (Misc Panel) 267H 05/17/21 21:34: Bedside Glucose (Misc Panel) 294H 05/18/21 05:46: Nucleated Red Blood Cells % (auto) 0.0, Anion Gap 9, Glomerular Filtration Rate > 60.0, Calcium Level 9.4, Total Bilirubin 0.6#, Aspartate Amino Transf (AST/SGOT) 26, Alanine Aminotransferase (ALT/SGPT) 45, Alkaline Phosphatase 76, Total Protein 6.8, Albumin 3.4, Albumin/Globulin Ratio 1.0L CBC/BMP Laboratory Tests 05/18/21 05:46 Constance Lucas MD May 18, 2021 07:37
[2021-05-18] MEDS ORDERED: LEVEMIR (INSULIN DETEMIR) 1 UNITS/0.01ML SC SCH (09:00)
[2021-05-18] MEDS: ASPIRIN 81MG ENTERIC TABLET PO SCH (09:43)
[2021-05-18] MEDS: CLOPIDOGREL 75 MG TAB PO SCH (09:43)
[2021-05-18] MEDS: IBUPROFEN 600MG TAB PO PRN ×2 (09:43→20:50)
[2021-05-18] MEDS: HumaLOG INSULIN (NovoLOG) PER UNIT SC SCH ×4 (09:43→20:43)
[2021-05-18] MEDS: ATORVASTATIN 20 MG TAB PO SCH (09:43)
[2021-05-18] MEDS: CitaloPRAM (CeleXA) 10 MG TABLET PO SCH (09:43)
[2021-05-18 10:22] VITALS: BP 123/86
--- NOTE | 2021-05-18 10:23 | ECHO ---
ECHOCARDIOGRAM DATE OF PROCEDURE: 05/16/2021 Age: 60 Gender: Female Height: 168 cm Weight: 89 kg PATIENT LOCATION: Emergency department/ REFERRING PROVIDER: Constance Lucas M.D. REASON FOR THE TESTING: Cerebrovascular accident (CVA). MEASUREMENTS: 2D Measurements: IVS 0.78 cm LV 4.6 cm LVPW 0.88 cm LA 3.2 cm Aorta 3.7 cm IVC 1.5 cm Doppler Measurements: Peak velocity across the aortic valve 1.2 m/sec Peak velocity across the LVOT 1.2 m/sec Mitral E 0.62 Mitral A 0.81 with a ratio of 0.8 2D COMMENTS: 1. Normal left ventricular size, wall thickness and normal global left ventricular systolic function. The estimated left ventricular systolic ejection fraction is 60-65% 2. Normal left atrium in limited views. The right atrium and the right ventricle appear to be mildly enlarged. 3. The atrial septum appeared to be normal without evidence of defect or shunt. 4. Normal aortic root. 5. Trace pericardial effusion noted. No evidence of cardiac tamponade. 6. Normal aortic valve. Minimally calcified mitral annulus with normal anterior mitral valve leaflet motion. Normal tricuspid valve. The pulmonic valve and proximal pulmonary artery branches were not well visualized. 7. The inferior vena cava was normal in size. Central venous pressure was most likely normal. DOPPLER: No significant valvular abnormalities detected. Abnormal relaxation pattern was noted across the mitral valve leaflets as well as the mitral valve annulus consistent with features of grade 1 left ventricular diastolic dysfunction. IMPRESSION: 1. Normal global left ventricular systolic function. There were some features of grade 1 left ventricular diastolic dysfunction manifested by abnormal relaxation. 2. No significant valvular abnormalities detected. 3. Trace pericardial effusion. 4. In view of the diagnosis of cerebrovascular accident (CVA) and because the right heart chambers appear to be mildly enlarged in limited views, I would recommend a bubble study for further evaluation for intracardiac shunt.
[2021-05-18] MEDS: NICOTINE 21MG/24HR 1 EA TRANSDERMAL TD SCH (13:47)
[2021-05-18 14:00] VITALS: BP 132/64
[2021-05-18 17:56] LABS: HEMOGLOBIN A1c 10.4 %
[2021-05-18] MEDS: LEVEMIR (INSULIN DETEMIR) 1 UNITS/0.01ML SC SCH (20:43)
[2021-05-18 22:00] VITALS: BP 144/71
[2021-05-19 06:00] VITALS: BP 131/66
[2021-05-19 06:08] LABS: HEMATOCRIT 44.9 % (36.0-47.0); HEMOGLOBIN 15.1 g/dl (12.0-15.5); MEAN CORPUSCULAR HEMOGLOBIN 32.5 pg (27.0-33.0); MEAN CORPUSCULAR HGB CONC 33.6 g/dl (32.0-36.5); MEAN CORPUSCULAR VOLUME 96.6 fl (80.0-96.0); PLATELET COUNT, AUTOMATED 226 10^3/uL (150-450); RED BLOOD COUNT 4.65 10^6/uL (4.00-5.40); WHITE BLOOD COUNT 7.3 10^3/uL (4.0-10.0)
[2021-05-19 06:24] LABS: ALBUMIN 3.2 GM/DL (3.2-5.2); ALT/SGPT 45 U/L (12-78); BILIRUBIN,TOTAL 0.5 MG/DL (0.2-1.0); BLOOD UREA NITROGEN 20 MG/DL (7-18); CARBON DIOXIDE LEVEL 25 MEQ/L (21-32); CHLORIDE LEVEL 104 MEQ/L (98-107); CREATININE FOR GFR 0.75 MG/DL (0.55-1.30); GLOMERULAR FILTRATION RATE > 60.0 (>51); GLUCOSE, FASTING 250 MG/DL (70-100); SODIUM LEVEL 135 MEQ/L (136-145); TOTAL PROTEIN 6.9 GM/DL (6.4-8.2)
[2021-05-19] MEDS ORDERED: ALBU8.5H INH (07:45)
[2021-05-19] MEDS ORDERED: METO1TAB87 PO (07:45)
[2021-05-19] MEDS ORDERED: CITA10TA5 PO (07:45)
[2021-05-19] MEDS ORDERED: METF-839 PO ×2 (07:45→07:49)
[2021-05-19] MEDS ORDERED: CLOP75TA2 PO (07:45)
[2021-05-19] MEDS ORDERED: ATOR80TA59 PO (07:45)
[2021-05-19] MEDS ORDERED: ASPI-551 PO (07:45)
[2021-05-19] MEDS: CitaloPRAM (CeleXA) 10 MG TABLET PO SCH (08:09)
[2021-05-19] MEDS: HumaLOG INSULIN (NovoLOG) PER UNIT SC SCH ×4 (08:09→21:27)
[2021-05-19] MEDS: LEVEMIR (INSULIN DETEMIR) 1 UNITS/0.01ML SC SCH ×2 (08:09→21:26)
[2021-05-19] MEDS: ATORVASTATIN 20 MG TAB PO SCH (08:09)
[2021-05-19] MEDS: ASPIRIN 81MG ENTERIC TABLET PO SCH (08:09)
[2021-05-19] MEDS: CLOPIDOGREL 75 MG TAB PO SCH (08:09)
[2021-05-19] MEDS: NICOTINE 21MG/24HR 1 EA TRANSDERMAL TD SCH (08:09)
[2021-05-19] MEDS: ACETAMINOPHEN TAB 650MG DOSE (2X325MG) PO PRN ×2 (08:10→20:41)
[2021-05-19 14:00] VITALS: BP 137/87
[2021-05-19] MEDS ORDERED: CETACAINE SPRAY 5GM As Ordered ONE (17:21)
[2021-05-19] MEDS ORDERED: LIDOCAINE VISCOUS 2% SOLN 15ML UDC As Ordered ONE (17:21)
[2021-05-19] MEDS ORDERED: LIDOCAINE 2% 100MG/5ML SDV (FOR ANES.) As Ordered ONE (17:30)
[2021-05-19] MEDS ORDERED: propofoL 200 MG/20 ML VIAL As Ordered ONE (17:30)
[2021-05-19] MEDS ORDERED: ONDANSETRON 4MG/2ML VIAL As Ordered ONE (17:31)
[2021-05-19] MEDS ORDERED: LR 1,000 ML IV SCH (18:40)
[2021-05-19] MEDS ORDERED: ONDANSETRON 4MG/2ML VIAL IV PRN (18:40)
[2021-05-19 19:00] VITALS: BP 131/70
[2021-05-19 19:30] VITALS: BP 123/70
--- NOTE | 2021-05-19 19:33 | IPNPDOC ---
Date Seen The patient was seen on 05/19/21. Progress Note SUBJECTIVE: Later this evening PFO was seen on bubble study with RAFAEL, discussed the case with cardiology. PT: Home with services. Denies chest pain, shortness of breath, fevers, chills, nausea, vomiting, lightheadedness or dizziness. OBJECTIVE: PHYSICAL EXAMINATION: VS: Please see below CONSTITUTIONAL: No acute distress, resting comfortably, AAO x 3 EYES: PERRLA, EOM intact HENT, MOUTH: Normocephalic, atraumatic, moist mucous membranes NECK: SUPPLE, no JVD, no lymphadenopathy, no carotid bruit CV: Regular rate and rhythm, S1S2 normal, no murmurs/rubs/gallops RESPIRATORY: Clear to auscultation bilaterally, no rales/rhonchi/wheezes GI: BS positive in 4 quadrants, soft, nontender, nondistended, no rebound or guarding, no organomegaly : Deferred MUSCULOSKELETAL: Normal ROM. No cyanosis, clubbing, swelling, joint deformity, extremity edema INTEGUMENTARY: Intact, no rashes, no lesions, no erythema NEUROLOGIC: improving 4/5 strength in the left lower and left upper extremity. Sensation was intact to dull and sharp in all extremities. Cranial nerves II-12 are intact. Reflexes present in upper and lower extremity PSYCHIATRIC: Mood and affect are normal LABORATORY DATA: Please see below IMAGING: RAFAEL (preliminary report) 05/19/21, discussed with Dr. Palacios: PFO with positive bubble shunting. Moderate to severe atheromatous distal aortic arch and descending thoracic aorta MRI brain with contrast: 1. Examination reveals no evidence for abnormal contrast enhancement in the focal area of vasogenic edema/gliosis noted in the right frontal white matter on the previous study. No significant mass effect is noted. This excludes the possibility of metastasis or infectious process. A low-grade glioma cannot be entirely excluded and a follow-up MRI in 3-6 months or MRI spectroscopy may be considered for further evaluation. 2. No abnormal contrast enhancement is seen in area of acute infarctions in the posterior limb of the right internal capsule noted on the previous study. 3. Stable changes of moderate chronic microvascular ischemic disease and multiple foci of chronic ischemia in bilateral cerebral white matter. Few of the white matter lesions are perpendicular to the long axis of the lateral ventricles and multiple sclerosis should also be considered. 4. There are prominent lenticulostriate small vessels bilaterally and vasculitis such as moyamoya disease should also be considered. MRA neck (was not able to do with contrast due to staffing): 1. No stenosis of the proximal internal carotid arteries bilaterally using NASCET criteria. 2. Suboptimal evaluation of the V1 segment of the right vertebral artery. Flow-limiting pathology cannot be excluded. 3. Additional findings described above. 4. Due to the limitations of this study, correlation with CTA or postcontrast MRA is recommended, as clinically indicated. MRA brain: 1. No large vessel arterial occlusion on this MRA head. 2. Artifact limits evaluation of the distal V3/proximal V4 segments of the bilateral vertebral arteries, without occlusion. The remaining V4 segments are patent. 3. Additional findings described above. MRI brain: 1. Foci of restricted diffusion are identified in the region of the posterior limb of the right internal capsule, consistent with acute lacunar infarcts. 2. A few tiny foci of increased diffusion signal intensity are noted within the left basal ganglia. Acute or subacute infarcts are considered. Due to the distribution of findings, embolic disease is suggested. 3. Moderate white matter disease, likely representing chronic small vessel ischemic disease. 4. An area of edema or gliosis identified within the right frontal white matter. Chronic small vessel ischemic disease is considered. Additional differential considerations listed above. A follow-up MRI with contrast is recommended to exclude an underlying enhancing lesion. 5. Mild atrophy. CT head: There is no midline shift or mass effect. Patchy lucencies are seen in the periventricular white matter bilaterally, right greater than left. These are nonspecific and may represent small vessel ischemic change, of indeterminate age. There is no acute intracranial hemorrhage or extra-axial fluid collection. CXR: 1. Some perihilar peribronchial thickening that may reflect reactive airway disease or bronchitis but no dense consolidation, pleural effusion, cardiomegaly or edema. B/l knee XR: Negative limited exam bilateral as described above. A patellar fracture cannot be ruled out although none is seen on this limited exam. R elbow XR: No acute osseous abnormality ASSESSMENT: 60-year-old female with past medical history of coronary artery disease status post stenting, diabetes mellitus, depression, hypertension, COPD, tobacco use admitted for left-sided weakness rule out CVA. PLAN: Left-sided weakness likely 2/2 to acute right lacunar infarcts, left basal ganglia 2/2 to embolic disease, Patent foramen ovale (PFO) present -RAFAEL above, f/u official report -MRI above -Multiple risk factors: Smoker, coronary artery disease, noncompliance with antiplatelet medication, hyperlipidemia. No known atrial flutter/atrial fib -Neurological findings stable and improving, neg neuro checks -Lipid panel shows high TG and cholesterol -No events on tele -PT: cleared, home with services. Script for RW and other equipment given to transit planner 05/19/21 -Echocardiogram initially done without bubble study -D/w with Dr. Palacios, cardiology. RAFAEL with bubble study prelim reading above. The patient is on Plavix, aspirin and high-dose statin which cardiology says should be okay for now. He would like to follow-up with her in 23 weeks to discuss options for PFO closure with occluding device needing to be done by interventional cardiology in [place]. -C/w high-dose atorvastatin, aspirin and Plavix -Discussed the case with neurology on-call, see consult note ? low-grade glioma on MRI brain with contrast -See report above -Will need f/u MRI in 3-6 months or MRI spectroscopy in future Fall secondary to left-sided weakness -X-rays above negative -Assistance with activity out of bed, fall precautions -PT/OT Hypertension -Stable -Holding home metoprolol and losartan for now Hyperlipidemia -High TG and cholesterol -Atorvastatin high dose Tobacco use -Nicotine patch COPD -Currently on room air, not in exacerbation -Albuterol when necessary Leg cramping bilaterally, hx of restless leg syndrome and electrolyte abnorm alities -On statin medication but CPK minimally elevated -Replace lytes PRN Depression -No homicidal or suicidal ideation -Continue home citalopram DVT prophylaxis -Lovenox DISPOSITION: Admitted as acute inpatient. Neurology has seen. RAFAEL done late today so discharge was postponed for 05/20/21. VS, I&O, 24H, Fishbone Vital Signs/I&O Vital Signs Date Time Temp Pulse Resp B/P (MAP) Pulse Ox O2 Delivery O2 Flow Rate FiO2 05/19/21 18:50 97.4 83 16 116/55 (75) 94 Room Air 05/18/21 07:31 2.0 I&O- Last 24 Hours up to 6 AM 05/19/21 06:00 Intake Total 1500 ml Output Total 600 ml Balance 900 ml Laboratory Data 24H LABS Laboratory Tests 2 05/18/21 20:15: Bedside Glucose (Misc Panel) 276H 05/19/21 05:16: Nucleated Red Blood Cells % (auto) 0.0, Anion Gap 6L, Glomerular Filtration Rate > 60.0, Calcium Level 9.0, Total Bilirubin 0.5, Aspartate Amino Transf (AST/SGOT) 22, Alanine Aminotransferase (ALT/SGPT) 45, Alkaline Phosphatase 87, Total Protein 6.9, Albumin 3.2, Albumin/Globulin Ratio 0.9L 05/19/21 11:15: Bedside Glucose (Misc Panel) 310H CBC/BMP Laboratory Tests 05/19/21 05:16 Constance Lucas MD May 19, 2021 19:32
[2021-05-19 20:00] VITALS: BP 133/74
[2021-05-19] MEDS: IBUPROFEN 600MG TAB PO PRN (21:26)
[2021-05-19 22:00] VITALS: BP 126/73
[2021-05-20 06:00] VITALS: BP 121/86
[2021-05-20 06:54] LABS: HEMOGLOBIN 15.5 g/dl (12.0-15.5); MEAN CORPUSCULAR HEMOGLOBIN 32.9 pg (27.0-33.0); MEAN CORPUSCULAR HGB CONC 33.7 g/dl (32.0-36.5); MEAN CORPUSCULAR VOLUME 97.7 fl (80.0-96.0); PLATELET COUNT, AUTOMATED 232 10^3/uL (150-450); RED BLOOD COUNT 4.71 10^6/uL (4.00-5.40); WHITE BLOOD COUNT 7.3 10^3/uL (4.0-10.0)
[2021-05-20 07:07] LABS: ALBUMIN 3.5 GM/DL (3.2-5.2); ALT/SGPT 47 U/L (12-78); BILIRUBIN,TOTAL 0.5 MG/DL (0.2-1.0); BLOOD UREA NITROGEN 25 MG/DL (7-18); CALCIUM LEVEL 9.3 MG/DL (8.5-10.1); CARBON DIOXIDE LEVEL 26 MEQ/L (21-32); CHLORIDE LEVEL 101 MEQ/L (98-107); CREATININE FOR GFR 0.82 MG/DL (0.55-1.30); GLOMERULAR FILTRATION RATE > 60.0 (>51); GLUCOSE, FASTING 210 MG/DL (70-100); POTASSIUM SERUM 4.4 MEQ/L (3.5-5.1); SODIUM LEVEL 137 MEQ/L (136-145)
[2021-05-20] MEDS: ASPIRIN 81MG ENTERIC TABLET PO SCH (08:05)
[2021-05-20] MEDS: CitaloPRAM (CeleXA) 10 MG TABLET PO SCH (08:07)
[2021-05-20] MEDS: CLOPIDOGREL 75 MG TAB PO SCH (08:07)
[2021-05-20] MEDS: ATORVASTATIN 20 MG TAB PO SCH (08:07)
[2021-05-20] MEDS: LEVEMIR (INSULIN DETEMIR) 1 UNITS/0.01ML SC SCH (08:09)
[2021-05-20] MEDS: HumaLOG INSULIN (NovoLOG) PER UNIT SC SCH ×3 (08:10→17:26)
[2021-05-20] MEDS: NICOTINE 21MG/24HR 1 EA TRANSDERMAL TD SCH (08:10)
[2021-05-20] MEDS: ACETAMINOPHEN TAB 650MG DOSE (2X325MG) PO PRN (10:42)
--- NOTE | 2021-05-20 11:52 | T-ECHO ---
TRANSESOPHAGEAL ECHO WITH SALINE BUBBLE STUDY DATE: 05/19/2021 REFERRING PHYSICIAN: Constance Lucas M.D. PROCEDURE: Patient received topical spray to the back of the pharynx (Cetacaine spray). After receiving adequate intravenous (IV) sedation with propofol supplied by the [employer], esophageal intubation was accomplished without difficulty using a 3D transesophageal echocardiogram probe. Rhythm was sinus. The left ventricle appeared normal in size and systolic function and without regional wall motion abnormalities. Left ventricular ejection fraction (LVEF) 65% by visual assessment. Right ventricle appeared normal in size and systolic function. Atrial septum showed presence of a patent foramen ovale. No atrial septum aneurysm. No fenestrations or atrial septum defects other than a patent foramen ovale. Under resting conditions with saline bubbles, no bubbles were seen to cross. With Valsalva maneuver release, a moderate amount of bubbles were seen to cross from the right atrium via the patent foramen ovale (PFO) to the left atrium. The final saline bubble study was performed using 1 mL of the patient's own blood, 1 mL of air and 8 mL of normal saline, which was agitated back and fourth between 10 mL syringes. Aortic valve was 3-cusp and structurally functional. Mitral leaflets were structurally functioning normal with trace mitral regurgitation within normal limits. Tricuspid and pulmonic valves appeared normal. No intracardiac masses. No pericardial effusion. Distal aortic arch and descending vascular showed patchy areas of moderate to severe atheroma without mobile components.
--- NOTE | 2021-05-20 12:33 | DS.PDOC ---
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 HISTORY OF PRESENT ILLNESS: 60-year-old W with past medical history of coronary artery disease status post stenting, diabetes mellitus, depression, hypertension, COPD, tobacco use who presented to [facility] emergency room with the chief complaint of left-sided weakness beginning 05/15/2020 1 in the AM. According to the patient her symptoms began at 6:30 in the morning on 05/15/21 with her left leg dragging on the ground. She stated that her symptoms began suddenly and she had to physically lift her leg to get it to move. Throughout the day she noticed left upper e xtremity weakness along with left hand numbness and tingling. She denied slurred speech, facial droop, difficulty swallowing, right-sided weakness, loss of bowel or bladder, chest pain, shortness of breath, nausea, vomiting, diarrhea, recent illnesses. Overnight she had a fall where she landed on both knees and her hand, and on the day of presentation, the symptoms persisted and she decided to call 911. HOSPITAL COURSE: In the emergency room her vital signs were stable. CT of the head showed n onspecific findings but no intracranial hemorrhage. Chest x-ray and bilateral knee x-ray, right elbow x-ray negative. On exam the patient had 4/5 strength in the left lower and left upper extremity. Sensation was intact to dull and sharp in all extremities. Cranial nerves II-12 are intact. Labs were unremarkable. Upon further questioning, the patient was supposed to be on Plavix and aspirin but admitted to not taking any of her medications since early spring. She was admitted to medicine for stroke workup and MRI showed foci of restricted diffusion in the region of the posterior limb of the right internal capsule, consistent with acute lacunar infarcts as well as tiny foci of increased diffu brian signal intensity were noted within the left basal ganglia. Due to the potential showering phenomenon, she had a RAFAEL on 11/8 that showed a PFO with positive bubble shunting. Lipitor was increase to 80mg daily while ASA 81 and plavix 75mg were restored. She worked with PT/OT and was cleared for discharge home. She is now being discharged home and encouraged to take medsas prescribed, will follow up with cardiology within 2w, and was also started on metformin 1g BID. She is to follow up with her PCP within 7d and was encouraged to stop smoking. DISCHARGE MEDICATIONS: Please see below. ALLERGIES: Please see below. PHYSICAL EXAMINATION ON DISCHARGE: VITAL SIGNS: Please see below. CONSTITUTIONAL: No acute distress, resting comfortably, AAO x 3 EYES: PERRLA, EOM intact HENT, MOUTH: Normocephalic, atraumatic, moist mucous membranes NECK: SUPPLE, no JVD, no lymphadenopathy, no carotid bruit CV: Regular rate and rhythm, S1S2 normal, no murmurs/rubs/gallops RESPIRATORY: Clear to auscultation bilaterally, no rales/rhonchi/wheezes GI: BS positive in 4 quadrants, soft, nontender, nondistended, no rebound or guarding, no organomegaly MUSCULOSKELETAL: Normal ROM. No cyanosis, clubbing, swelling, joint deformity, extremity edema INTEGUMENTARY: Intact, no rashes, no lesions, no erythema NEUROLOGIC: 4/5 strength in the left lower and left upper extremities. 5/5 on R side throughout. Cranial nerves II-12 are intact. PSYCHIATRIC: Mood and affect are normal. AOx3 LABORATORY DATA: Please see below. IMAGING: RAFAEL (preliminary report) 05/19/21, discussed with Dr. Palacios: PFO with positive bubble shunting. Moderate to severe atheromatous distal aortic arch and descending thoracic aorta MRI brain with contrast: 1. Examination reveals no evidence for abnormal contrast enhancement in the focal area of vasogenic edema/gliosis noted in the right frontal white matter on the previous study. No significant mass effect is noted. This excludes the possibility of metastasis or infectious process. A low-grade glioma cannot be entirely excluded and a follow-up MRI in 3-6 months or MRI spectroscopy may be considered for further evaluation. 2. No abnormal contrast enhancement is seen in area of acute infarctions in the posterior limb of the right internal capsule noted on the previous study. 3. Stable changes of moderate chronic microvascular ischemic disease and multiple foci of chronic ischemia in bilateral cerebral white matter. Few of the white matter lesions are perpendicular to the long axis of the lateral ventricles and multiple sclerosis should also be considered. 4. There are prominent lenticulostriate small vessels bilaterally and vasculitis such as moyamoya disease should also be considered. MRA neck (was not able to do with contrast due to staffing): 1. No stenosis of the proximal internal carotid arteries bilaterally using NASCET criteria. 2. Suboptimal evaluation of the V1 segment of the right vertebral artery. Flow-limiting pathology cannot be excluded. 3. Additional findings described above. 4. Due to the limitations of this study, correlation with CTA or postcontrast MRA is recommended, as clinically indicated. MRA brain: 1. No large vessel arterial occlusion on this MRA head. 2. Artifact limits evaluation of the distal V3/proximal V4 segments of the bilateral vertebral arteries, without occlusion. The remaining V4 segments are patent. 3. Additional findings described above. MRI brain: 1. Foci of restricted diffusion are identified in the region of the posterior limb of the right internal capsule, consistent with acute lacunar infarcts. 2. A few tiny foci of increased diffusion signal intensity are noted within the left basal ganglia. Acute or subacute infarcts are considered. Due to the distribution of findings, embolic disease is suggested. 3. Moderate white matter disease, likely representing chronic small vessel ischemic disease. 4. An area of edema or gliosis identified within the right frontal white matter. Chronic small vessel ischemic disease is considered. Additional differential considerations listed above. A follow-up MRI with contrast is recommended to exclude an underlying enhancing lesion. 5. Mild atrophy. CT head: There is no midline shift or mass effect. Patchy lucencies are seen in the periventricular white matter bilaterally, right greater than left. These are nonspecific and may represent small vessel ischemic change, of indeterminate age. There is no acute intracranial hemorrhage or extra-axial fluid collection. CXR: 1. Some perihilar peribronchial thickening that may reflect reactive airway disease or bronchitis but no dense consolidation, pleural effusion, cardiomegaly or edema. B/l knee XR: Negative limited exam bilateral as described above. A patellar fracture cannot be ruled out although none is seen on this limited exam. R elbow XR: No acute osseous abnormality PROGNOSIS: Good with full compliance with meds and appointments ACTIVITY: As tolerated DIET: consistent carb, 2g sodium DISCHARGE PLAN: Home with services. Cardiology within 2w, PCP within 1w DISPOSITION: Home with services DISCHARGE INSTRUCTIONS: Home with services. Cardiology within 2w, PCP within 1w. ASA 81, plavix 75, lipitor 80. ITEMS TO FOLLOWUP ON ON OUTPATIENT: CVA PFO Glycemic control DISCHARGE CONDITION: Stable TIME SPENT ON DISCHARGE: 35 minutes. Vital Signs/I&Os Vital Signs Date Time Temp Pulse Resp B/P (MAP) Pulse Ox O2 Delivery O2 Flow Rate FiO2 05/20/21 06:00 97.1 88 18 121/86 (98) 90 Room Air 05/18/21 07:31 2.0 I&O- Last 24 Hours up to 6 AM 05/20/21 06:00 Intake Total 1265 ml Output Total 800 ml Balance 465 ml Laboratory Data Labs 24H Laboratory Tests 2 05/19/21 20:53: Bedside Glucose (Misc Panel) 372H 05/20/21 05:33: Nucleated Red Blood Cells % (auto) 0.0, Anion Gap 10, Glomerular Filtration Rate > 60.0, Calcium Level 9.3, Total Bilirubin 0.5, Aspartate Amino Transf (AST/SGOT) 19, Alanine Aminotransferase (ALT/SGPT) 47, Alkaline Phosphatase 85, Total Protein 7.0, Albumin 3.5, Albumin/Globulin Ratio 1.0L 05/20/21 11:32: Bedside Glucose (Misc Panel) 323H CBC/BMP Laboratory Tests 05/20/21 05:33 FSBS Laboratory Tests Test 05/19/21 20:53 05/20/21 11:32 Range/Units Bedside Glucose (Misc Panel) 372 323 70-105 MG/DL Discharge Medications Scheduled Aspirin (Aspirin EC) 81 Mg Tablet.dr, 81 MG PO DAILY Atorvastatin Calcium (Atorvastatin Calcium) 80 Mg Tablet, 80 MG PO DAILY Citalopram Hydrobromide (Citalopram HBr) 10 Mg Tablet, 10 MG PO DAILY Clopidogrel Bisulfate (Clopidogrel) 75 Mg Tablet, 75 MG PO DAILY, (Reported) Clopidogrel Bisulfate (Clopidogrel) 75 Mg Tablet, 75 MG PO DAILY Metformin HCl (Metformin HCl) 500 Mg Tablet, 1,000 MG PO BID Please take with food Metoprolol Tartrate (Metoprolol Tartrate) 25 Mg Tablet, 12.5 MG PO BID Scheduled PRN Albuterol Sulfate (Albuterol Sulfate Hfa) 8.5 Gm Hfa.aer.ad, 1 PUFF INH Q4H PRN for SOB/WHEEZING Cyclobenzaprine HCl (Cyclobenzaprine HCl) 5 Mg Tablet, 5 MG PO QHS PRN for MUSCLE SPASMS, (Reported) Allergies Coded Allergies: No Known Allergies (Unverified , 10/03/20) BOBBI GALLEGO MD May 20, 2021 12:33
--- NOTE | 2021-05-22 14:38 | CR ---
CONSULTATION DATE: 05/17/2021 REFERRING PROVIDER: Constance Lucas MD REASON FOR CONSULTATION: Suspected acute stroke with sudden weakness of the leg. HISTORY OF PRESENT ILLNESS: The patient is a 60-year-old, right-handed female with past history of coronary artery disease, status post stenting, diabetes mellitus, depression, hypertension, COPD, tobacco abuse, presented to [facility] with chief complaint of weakness involving the left leg. This occurred on 05/15/2020 at around 1 in the morning. The patient the next day noticed that her hand was getting worse and the arm was getting weak as well. She then was brought to the [facility]. She was out of any window for TPA. She denied any slurred speech, facial droop, difficulty swallowing, speaking. Her right side symptoms stable. She denies any chest pain, shortness of breath, headache, nausea, vomiting. She was admitted. CT scan of the head showed nonspecific microvascular disease. MRI of the brain was obtained which did reveal an abnormal area of hyperlucency in the right frontal lobe, asymmetric compared to the left consistent with small vessel ischemic disease with possibility of underlying mass lesion. MRI did not find any enhancement. There was evidence of acute infarction in the right internal capsule. Moderate microvascular changes were noted. The patient had MR angiography of the neck which did not show V1 segment flow well. MRA of the brain showed artifact limiting the distal V3, proximal V4 segments of the bilateral vertebral arteries without occlusion. Remaining V4 segments were patent. The patient had significant improvement in symptoms. She was placed on 81 mg aspirin and Plavix 75 mg and Lipitor was increased to 80 mg. The patient did have RAFAEL with positive bubble shunting, moderate to severe, atheromatous distal aortic arch, descending thoracic aorta. The patient would need further cardiology evaluation for possible PFO closure. The patient was to be discharged with followup with cardiology in two weeks. The patient was supposed to be on Plavix since the summertime after her stent but chosen not to take it. PHYSICAL EXAMINATION: Blood pressure is 148/d73, pulse rate 86, respiratory rate is 12. Oxygenation is 93% on room air. The patient is awake, alert and oriented to person, place and time. Speech, language, comprehension, repetition are intact. Pupils are 3 mm, round, reactive to light. Extraocular movements are intact. There is no facial weakness. Tongue is midline. Hearing is equal to finger rub. There is no loss of sensation to light touch in the face, arms and legs. There is no ataxia, dysmetria or tremor. Romberg testing and gait are normal. Patient has improved strength in the left lower extremity. There is no ataxia, dysmetria or tremor. Sensation is intact to light touch in all four extremities and the face. Babinski signs are absent. Deep tendon reflexes are 2+ throughout with reduced Achilles reflexes. The patient's initial 4/5 left lower extremity weakness is significantly improved. ASSESSMENT: 1. Right internal capsular acute ischemic stroke. 2. Moderate advanced microvascular disease of the brainstem, cannot entirely exclude nonenhancing gliosis lesion of the right frontal lobe. 3. Positive PFO as possible source of stroke. 4. Acute strokes noted in the posterior limb of the right internal capsule. 5. Possible left basal ganglia acute versus subacute infarct. PLAN: 1. Continue aspirin 81 mg daily, Plavix 75 mg daily, optimize hypertension, diabetes, hyperlipidemia, continue with Lipitor 80 mg daily, follow up with cardiology regarding PFO closure, PT, OT recommended, continue telemetry monitoring. Patient can follow up in the neurology clinic 4-6 weeks after discharge.
== END 2021-05-20 18:27 | disposition home health service (06) | DRG 45 ==
LOC: M ED 12:09 → M ED INP 15:32 → ENRESERV 05-18 08:25 → M MSPAV 05-18 09:57
PROVIDERS: ADMIT Internal Medicine; ATTEND Internal Medicine
PROC: B246ZZ4 Ultrasonography of Right and Left Heart, Transesophageal (ICD-10-PCS; principal; 2021-05-19 09:34)
DX: I63.431 Cerebral infarction due to embolism of right posterior cerebral artery (principal); G81.92 Hemiplegia, unspecified affecting left dominant side; I10 Essential (primary) hypertension; Q21.1 Atrial septal defect; I25.10 Atherosclerotic heart disease of native coronary artery without angina pectoris; E11.9 Type 2 diabetes mellitus without complications; F32.A Depression, unspecified; J44.9 Chronic obstructive pulmonary disease, unspecified; F17.200 Nicotine dependence, unspecified, uncomplicated; G25.81 Restless legs syndrome; R20.0 Anesthesia of skin; Z95.5 Presence of coronary angioplasty implant and graft; Z90.49 Acquired absence of other specified parts of digestive tract; Z20.822 Contact with and (suspected) exposure to COVID-19; Z79.02 Long term (current) use of antithrombotics/antiplatelets; Z79.899 Other long term (current) drug therapy

== ENCOUNTER → 2022-09-23 | Outpatient (REF) ==
[~2022-09-23] MED LIST changes: +ALBU8.5H INH; +ASPI-551 PO; +ATOR80TA59 PO; -CITA10TA5 PO; +CITA10TA7 PO; +LOSA25TA13 PO; -LOSA25TA14 PO; +METF-839 PO; +METO1TAB87 PO
== END ==
LOC: M PLAIMG 10:23
PROVIDERS: ATTEND Internal Medicine
DX: R52 Pain, unspecified (principal)